=== PATIENT | female | born 1960 | race Caucasian/White ===

== ENCOUNTER → 2021-08-15 09:01 | Outpatient (BNVA) | payer OTHER, MEDICAID, SELFPAY | PROVIDERS: PCP Nurse Practitioner Family; Visit Provider Psychiatry & Neurology Neurology ==

== ENCOUNTER → 2021-10-17 13:04 | Outpatient (BNVA) | payer OTHER, MEDICAID, SELFPAY | PROVIDERS: PCP Nurse Practitioner Family; Visit Provider Psychiatry & Neurology Neurology ==

== ENCOUNTER → 2022-09-13 09:35 | Outpatient (BNVA) | payer OTHER, MEDICAID, SELFPAY | PROVIDERS: PCP Nurse Practitioner Family; Visit Provider Psychiatry & Neurology Neurology | DX: Z13.89 Encounter for screening for other disorder (principal) ==

== ENCOUNTER 2024-05-06 08:34 | Outpatient (AMB) | payer MEDICARE, MEDICAID, SELFPAY ==
--- NOTE | 2024-05-06 08:38 | A.OFFVIS_ITS ---
Vital Signs 05/06/24 08:40 Height 5 ft Weight 112 lb 4 oz BMI 21.9 BP 122/80 Blood Pressure Location Rt brachial Intake Visit Reasons: Follow Up Intake Note: Patient presents for a follow up- Frontotemporal Dementia. Manager Shop Required: No Accompanied by: Daughter Allergies No Known Allergies Allergy (Verified 05/06/24 08:43) Medication List - Last Reconciled 05/06/24 by Armida Murphy MD atorvastatin 20 mg PO DAILY levothyroxine 100 mcg PO QAM nitrofurantoin macrocrystal 100 mg PO DAILY quetiapine 100 mg (2 x 50 mg) PO BEDTIME 90 days HPI Comments Details: 63y/o female with advanced dementia ( frontotemporal) comes for follow up. she is totally dependant on her daughter . Her behavior has worsened.she needs help with walking transferring etc due to high risk of falls. Her daughters are her [employer] - 43 hrs . Her daughter lives with her.she wanders, eats whatever she finds. Since her last visit patient has been increasingly confused forgetful. she has hallucinations .she denies any aggression she takes quetiapine at night 50mg - sleeps for 4 hrs and wakes her up. she frequently chews her fingers throughout the day and night. she paces a lot Family stopped donepezil. she has difficulty getting up from bed, has severe executive dysfunction and word finding difficulty , paraphasias. she also has some hallucinations Both her daughters provide [employer] services through [employer]. her in Sep 2023 [facility] Medical History High blood cholesterol High blood pressure Memory loss Thyroid disease Family History Mother Cancer Brother Fronto-temporal dementia Alcoholic Social History Alcohol intake: former Patient Tobacco Use Status: Former Tobacco user Cigarette Packs Per Day: 1 Cigarettes Per Day: 20 Review of Systems Neuro Reports confusion Psych Reports confusion Physical Exam Vital Signs: Last Vital Signs BP 122/80 05/06/24 08:40 BMI result Body Mass Index 21.9 Const Other: paces General: healthy appearing, comfortable and confusion Nutritional Appearance: average body habitus Orientation/consciousness: confusion and Other orientation findings (disoriented to person , was able to recognize her daughter.) HEENT Head: Yes normal to inspection Neuro General: confusion Cranial nerves: Yes Bilaterally intact EOM present and Yes Normal facial strength present Cognition (Neuro): abnormal cognition Psych Appearance: well kempt Affect: Labile affect present Attitude: cooperative Assessment & Plan Assessment & Plan (1) Other frontotemporal dementia: Comment: Familial Code(s): G31.09 - Other frontotemporal neurocognitive disorder; F02.80 - Dementia in other diseases classified elsewhere, unspecified severity, without behavioral disturbance, psychotic disturbance, mood disturbance, and anxiety Category: Medical Plan will refer her [facility] for counseling and testing for her children suggested quetiapine 25 mg qm 50mg qhs and extra 50 mg as needed at midnight supportive care Orders: Referrals Genetics Referral F02.80 - Dementia in other diseases classified elsewhere, unspecified severity, without behavioral disturbance, psychotic disturbance, mood disturbance, and anxiety, G31.09 - Other frontotemporal neurocognitive disorder Coding Level of Care Code Est Pt Level 4 (37392) Diagnoses Other frontotemporal dementia G31.09; F02.80
[2024-05-06 08:40] VITALS: BP 122/80; BMI 21.9
== END 2024-05-06 09:05 | disposition home or self-care (01) ==
PROVIDERS: Visit Provider Psychiatry & Neurology Neurology
DX: G31.09 Other frontotemporal neurocognitive disorder (principal); F02.80 Dementia in other diseases classified elsewhere, unspecified severity, without behavioral disturbance, psychotic disturbance, mood disturbance, and anxiety
CPT/HCPCS: 99214

== ENCOUNTER → 2024-05-06 08:34 | Outpatient (BNVA) | payer MEDICARE, MEDICAID, SELFPAY | PROVIDERS: Visit Provider Psychiatry & Neurology Neurology | DX: G31.09 Other frontotemporal neurocognitive disorder (principal); F02.80 Dementia in other diseases classified elsewhere, unspecified severity, without behavioral disturbance, psychotic disturbance, mood disturbance, and anxiety | CPT/HCPCS: 99212 ==